=== PATIENT | male | born 1960 | race Caucasian/White ===

== ENCOUNTER → 2022-01-07 14:00 | Outpatient (CLI) | payer SELFPAY ==
--- NOTE | 2022-01-07 | DI.RAD.S_ITS ---
PROCEDURE: XR LUMBAR SPINE 2-3V INDICATIONS: LOW BACK PAIN TECHNIQUE: 3 views of the lumbar spine were acquired. COMPARISON: None. FINDINGS: Suspected bilateral L4 pars defects. Approximately 8 millimeter anterolisthesis of L4 on L5. Otherwise normal alignment. Moderate to severe degenerative changes from L3-L4 through L5-S1 characterized by disc height loss with bulky facet hypertrophy. There is probable severe neural foraminal stenosis at L4-L5. 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 Dictated by: Wong Scanlon M.D. on 01/07/2022 at 15:48 Approved by: Wong Scanlon M.D. on 01/07/2022 at 15:49
== END ==
PROVIDERS: Referring Provider Chiropractor; Visit Provider Chiropractor
DX: M54.50 Low back pain, unspecified (principal); M43.16 Spondylolisthesis, lumbar region
CPT/HCPCS: 72100